=== PATIENT | female | born 1960 | race Native Hawaiian/Other Pacific Islander ===

== ENCOUNTER 2016-06-09 08:39 | Outpatient (RCR) | payer MEDICAID ==
[2016-06-09 08:52] LABS: MEAN CORPUSCULAR HEMOGLOBIN 30.7 PG (26.0-34.0); MEAN CORPUSCULAR HGB CONC 32.3 g/dL (31.0-37.0); MEAN CORPUSCULAR VOLUME 95 FL (80-100); MEAN PLATELET VOLUME 10.1 FL (6.0-9.5); PLATELET COUNT 206 10^3uL (150-450); WHITE BLOOD COUNT 14.86 10^3uL (4.0-11.0)
[2016-06-09 09:10] LABS: BAND NEUTROPHILS % 2 % (0-6); EOSINOPHILS % 2 % (0-4); LYMPHOCYTES # 2.2 #; MONOCYTES # 1.4 #; MONOCYTES % 10 % (3-11); RBC MORPH NORMAL (NORMAL); SEGMENTED NEUTROPHILS % 71 % (51-67); TOTAL CELLS COUNTED 100
[2016-06-09 09:25] LABS: ANION GAP 17.9 MEQ/L (3-15); CALCULATED IONIZED CALCIUM 3.5 mg/dL (3.8-4.6)
== END 2016-09-07 | disposition still patient (30) ==
LOC: LAB 08:39
PROVIDERS: ATTEND Internal Medicine Rheumatology
DX: Z51.81 Encounter for therapeutic drug level monitoring (principal); Z79.899 Other long term (current) drug therapy; M33.20 Polymyositis, organ involvement unspecified
CPT/HCPCS: 36415; 80053; 85025

== ENCOUNTER → 2016-08-18 | Outpatient (CLI) | payer MEDICAID ==
[~2016-08-18] MED LIST: ALBU2.5V4 INH; ALEN70TA2 PO; AMLO10TA4 PO; ASPI-860 PO; ASPI325T4 PO; ATN50T PO; CALC-690 PO; CEPH-507 PO; EYE; FLC1T PO; FURO20TA4 PO; GBPN100C PO; HYDR-3702 PO; INSASP1U SQ; INSU100V32 SQ; LIRA0.6P2 SC; LSNP20T PO; LTN005OP2 OU; METH25VI32 IM; METO-311 PO; NF-FLON16G NS; PANT40TA3 PO; PRAV40TA2 PO; PRED10TA PO; PRED10TA22 PO; RANI150T15 PO; TRAM-25 PO
[2016-08-18 14:05] LABS: ANION GAP 15.8 MEQ/L (3-15)
== END ==
LOC: LAB 13:35
PROVIDERS: ATTEND Orthopaedic Surgery
DX: I10 Essential (primary) hypertension (principal)
CPT/HCPCS: 36415; 80048; 93005

== ENCOUNTER 2016-08-22 09:58 | Emergency (ER) | payer MEDICAID ==
[~2016-08-22] VITALS: Ht 144.8 cm; Wt 63.6 kg
[~2016-08-22 09:58] MED LIST changes: -LIRA0.6P2 SC
--- OUTSIDE RECORDS SUMMARY | 2016-08-22 10:05 | XMS REPORT | Continuity of Care Document ---
Author Author [facility] Organization [facility] Address Unknown Phone Unavailable Care Team Providers Care Medical Doctor Nuclear Medicine Name Role Phone PCP Unavailable Source Comments Some departments are not documenting in the electronic medical record. If you do not see the information that you expected, contact Release of Information in the Health Information Management department at [phone] for further assistance in locating additional records.[facility] Active Allergies and Adverse Reactions Allergen Noted Date Severity Reactions Comments Penicillins 12/17/2014 Medium RASH Current Medications Prescription Sig. Disp. Refills Start End Date Status Date furosemide (LASIX) 20 mg Take 20 mg by mouth Active tablet daily. BABY ASPIRIN PO Take 81 mg by mouth. Active INSULIN Inject 100 mL into Active GLARGINE,HUM.REC.ANLOG area(s) as directed at (LANTUS SC) bedtime daily. lisinopril (PRINIVIL; Take 20 mg by mouth Active ZESTRIL) 20 mg tablet daily. folic acid (FOLVITE) 1 mg Take 1 mg by mouth daily. Active tablet ranitidine(+) (ZANTAC) Take 150 mg by mouth Active 150 mg tablet daily. fluticasone (FLONASE) 50 Apply 2 Sprays to each Active mcg/actuation nasal spray nostril as directed daily. latanoprost (XALATAN) Place 1 Drop into or Active 0.005 % ophthalmic around eye(s) at bedtime solution daily. methotrexate PF 25 mg/mL Inject into area(s) as Active injection directed once. CALCIUM CARBONATE/VITAMIN Take by mouth twice Active D2 (CALCIUM + VITAMIN D daily. PO) amLODIPine (NORVASC) 10 Take 10 mg by mouth Active mg tablet daily. INSULIN ASPART (NOVOLOG Inject 100 Units into Active SC) area(s) as directed. PANTOPRAZOLE SODIUM Take 40 mg by mouth. Active (PROTONIX PO) alendronate (FOSAMAX) 70 Take 70 mg by mouth every Active mg tablet 7 days. pravastatin (PRAVACHOL) Take 40 mg by mouth Active 40 mg tablet daily. metoclopramide HCl Take 10 mg by mouth Active (REGLAN) 10 mg tablet before meals and at bedtime. omeprazole DR(+) Take 20 mg by mouth Active (PRILOSEC) 20 mg capsule daily. gabapentin (NEURONTIN) Take 1 Cap by mouth three 90 Cap 6 06/15/20 Active 300 mg capsule times daily. 15 methotrexate 2.5 mg Take 8 Tabs by mouth 32 Tab 5 07/29/20 Active tablet every 7 days. 15 predniSONE (DELTASONE) 5 2.5 Tabs daily with 90 Tab 2 05/02/20 Active mg tablet breakfast. 16 Active Problems Problem Noted Date Diabetic peripheral neuropathy (HCC) 06/15/2015 Polymyositis 12/17/2014 manager culture current use of systemic steroids 12/17/2014 Long-term use of immunosuppressant medication 12/17/2014 Most Recent Encounters Date Type Specialty Providers Description 07/21/2016 Telephone Neurology Ahmet Devi MD Appointment - 12..16 appt reminder Social History Tobacco Use Types Packs/Day Years Used Date Former Smoker Quit: 12/17/2010 Smokeless Tobacco: Never Used Alcohol Use Drinks/Week oz/Week Comments Yes Last Filed Vital Signs Vital Sign Reading Time Taken Blood Pressure 133/86 06/15/2015 3:30 PM [employer] Pulse 91 06/15/2015 3:30 PM [employer] Temperature - - Respiratory Rate - - Height 1.448 m (4' 9") 06/15/2015 3:30 PM [employer] Weight 61.689 kg (136 lb) 06/15/2015 3:30 PM [employer] Body Mass Index 29.42 06/15/2015 3:30 PM [employer] Oxygen Saturation - - Plan of Care Health Maintenance Due Date Last Done Comments Hepatitis C Screening 1958 Physical (Comprehensive) 1965 Exam Pertussis Vaccine 1969 Tetanus Vaccine 1975 Dilated Eye Exam 1976 Foot Exam 1976 Hba1c 1976 Microalbumin 1976 Pneumonia Vaccine (Dm) 1976 Cervical Cancer Screening 1979 Breast Cancer Screening 1998 Colorectal Cancer 2008 Screening Influenza Vaccine 04/06/2016 Results from Last 3 Months Not on file
[2016-08-22] MEDS ORDERED: SODIUM CHLORIDE 250 ML IV PRN (10:15)
[2016-08-22] MEDS ORDERED: SODIUM CHLORIDE FLUSH 10 ML SYR IV PRN (10:15)
[2016-08-22] MEDS ORDERED: SODIUM CHLORIDE FLUSH 3 ML SYR IV PRN (10:15)
[2016-08-22] MEDS ORDERED: GI COCKTAIL 55 ML UDC PO ONE (10:35)
[2016-08-22 10:36] LABS: MEAN CORPUSCULAR HEMOGLOBIN 29.6 PG (26.0-34.0); MEAN CORPUSCULAR VOLUME 94 FL (80-100); MEAN PLATELET VOLUME 10.9 FL (6.0-9.5); PLATELET COUNT 206 10^3uL (150-450); WHITE BLOOD COUNT 16.68 10^3uL (4.0-11.0)
[2016-08-22] MEDS ORDERED: BELLADONNA/PHENOBARBITAL ELIXIR (DONNATAL) 10 ML UDC ONE (10:41)
[2016-08-22] MEDS ORDERED: MAG HYDROX/AL HYDROX/SIMETH 400-400-40/5 ML (MAG-AL PLUS XS) 30 ML UDC ONE (10:41)
[2016-08-22] MEDS ORDERED: LIDOCAINE 2% VISCOUS 20ML UDC PO ONE (10:41)
--- NOTE | 2016-08-22 10:41 | Diagnostic Imaging Report ---
Indication: Chest pain. Discussion: Single portable upright view of the chest was obtained, no comparison. Cardiomegaly is noted. Elevated right hemidiaphragm. No evidence of maritza heart failure. No focal consolidation, pleural fluid, or pneumothorax. No acute osseous abnormality. Posttraumatic deformity of the proximal right humerus is noted, chronic. Impression: 1. Cardiomegaly without failure. Dictated by: Dictated on workstation # [id number]
[2016-08-22 10:45] LABS: MEAN CORPUSCULAR HGB CONC 31.4 g/dL (31.0-37.0)
[2016-08-22 10:48] LABS: BAND NEUTROPHILS % 5 % (0-6); EOSINOPHILS % 0 % (0-4); LYMPHOCYTES # 1.8 #; MONOCYTES % 6 % (3-11); RBC MORPH NORMAL (NORMAL); SEGMENTED NEUTROPHILS % 78 % (51-67); TOTAL CELLS COUNTED 100
[2016-08-22] MEDS ORDERED: LIRA0.6P2 SC (10:54)
[2016-08-22 11:09] LABS: ALBUMIN 4.3 g/dL (3.4-5.0); ALKALINE PHOSPHATASE 86 U/L (38-126); ANION GAP 15.3 MEQ/L (3-15); BUN/CREATININE RATIO 28 (10-20); CALCULATED IONIZED CALCIUM 3.7 mg/dL (3.8-4.6); LIPASE* 373 U/L (23-300); TOTAL PROTEIN 7.9 g/dL (6.4-8.5)
--- NOTE | 2016-08-22 12:41 | Diagnostic Imaging Report ---
PROCEDURE: CT abdomen and pelvis without contrast. TECHNIQUE: Multiple contiguous axial images were obtained through the abdomen and pelvis without the use of intravenous contrast. DATE: August 22, 2016. COMPARISON: None. INDICATION: A 56-year-old female, mid abdominal pain. FINDINGS: There are limitations for evaluation of the abdominal organ parenchyma and vasculature relating to the lack of intravenous contrast. There are predominantly linear areas of consolidation in the right lower lobe, which may potentially relate to atelectasis although are not specific. There are also predominantly linear opacities in the left lower lobe, which also may relate to atelectasis but are also not specific. There are coronary artery calcifications and additional areas of atherosclerotic disease. There is an infrarenal abdominal aortic aneurysm which measures up to approximately 4.2 x 3.9 cm in diameter. There is calcification in the liver on axial image 15 without visualized associated liver lesion on noncontrast assessment. This is most suggestive of a benign calcification. There is a low-attenuation lesion adjacent to the ligamentum teres on image 31 with internal attenuation of 10 Hounsfield units. This is most suggestive of a benign hepatic cyst. The liver is normal in size and contour. The gallbladder is unremarkable. There is no intrahepatic or extrahepatic bile duct dilation. The pancreatic parenchyma is unremarkable. There is no dilation of the main pancreatic duct. The spleen is normal in size. The adrenal glands are unremarkable. There is a low-attenuation left renal lesion on axial image 27, which measures 1.1 cm in size with internal attenuation of 5 Hounsfield units. This is consistent with a benign cyst. There is also a benign 9 mm left renal cyst on image 29. There is a low-attenuation lesion in the left kidney with a small area of peripheral calcification on axial image 34 measuring up to approximately 1.1 cm in size. Internal attenuation within the low-attenuation portions of the lesion is 10 Hounsfield units. This is compatible with a Bosniak category II renal cyst. There is a low-attenuation right renal lesion consistent with a benign cyst measuring 1.1 cm in size on axial image 46. The urinary collecting systems are not distended. There is no identified ureteral stone. The urinary bladder is unremarkable in appearance. The uterus is not seen and may be surgically absent. The intestinal tract is not distended. The appendix is well seen on axial image 61 and adjacent sequential images. There is no evidence of acute appendicitis. There is no free intraperitoneal air. There is no drainable fluid collection. There is no large amount of free pelvic fluid. There is no identified abnormally enlarged lymph node in the abdomen or pelvis, which meets CT size criteria for adenopathy. There is no identified acute bony abnormality. There are mild degenerative changes of the bilateral hips. There are mild multilevel degenerative changes of the spine. There is concavity of the superior endplates of L2 and L3 as well as T9, which likely relates to Schmorl's nodes and/or prior compression deformities. There is no visible fracture line. IMPRESSION: CT ABDOMEN AND PELVIS. 1. No identified acute abnormality within the abdomen or pelvis. 2. Infrarenal abdominal aortic aneurysm measuring up to approximately 4.2 x 3.9 cm in size. Atherosclerotic disease. 3. Bilateral benign renal cysts. 4. Predominantly linear opacities in the lung bases most likely relating to atelectasis although not entirely specific. Dictated by: Dictated on workstation # [id number]
[2016-08-22 13:10] VITALS: BP 117/52
== END 2016-08-22 13:11 | disposition home or self-care (01) ==
LOC: EDUNIT# 09:58 → ED 10:01
DX: K29.70 Gastritis, unspecified, without bleeding (principal); D72.829 Elevated white blood cell count, unspecified
CPT/HCPCS: 36415; 71010; 74176; 80053; 83690; 84484; 85025; 85610; 93005; 99285; A9270; 93010

== ENCOUNTER 2016-09-15 12:36 | Outpatient (RCR) | payer MEDICAID ==
[~2016-09-15 12:36] MED LIST changes: +LIRA0.6P2 SC
[2016-09-15 13:09] LABS: MEAN CORPUSCULAR HGB CONC 32.5 g/dL (31.0-37.0); MEAN CORPUSCULAR VOLUME 93 FL (80-100); MEAN PLATELET VOLUME 10.6 FL (6.0-9.5); PLATELET COUNT 225 10^3uL (150-450); WHITE BLOOD COUNT 13.43 10^3uL (4.0-11.0)
[2016-09-15 13:17] LABS: BAND NEUTROPHILS % 2 % (0-6); EOSINOPHILS % 0 % (0-4); MONOCYTES # 1.4 #; MONOCYTES % 11 % (3-11); RBC MORPH NORMAL (NORMAL); SEGMENTED NEUTROPHILS % 72 % (51-67); TOTAL CELLS COUNTED 100
[2016-09-15 13:20] LABS: ALBUMIN 4.1 g/dL (3.4-5.0); ANION GAP 14.1 MEQ/L (3-15); TOTAL PROTEIN 7.2 g/dL (6.4-8.5)
== END 2016-12-14 | disposition home or self-care (01) ==
LOC: LAB 12:36
PROVIDERS: ATTEND Internal Medicine Rheumatology
DX: M33.20 Polymyositis, organ involvement unspecified (principal); Z51.81 Encounter for therapeutic drug level monitoring; Z79.899 Other long term (current) drug therapy
CPT/HCPCS: 36415; 80053; 85025

== ENCOUNTER → 2016-10-04 | Outpatient (CLI) | payer MEDICAID ==
[2016-10-04 14:20] LABS: ANION GAP 15.5 MEQ/L (3-15)
== END ==
LOC: LAB 13:54
PROVIDERS: ATTEND Orthopaedic Surgery
DX: I10 Essential (primary) hypertension (principal)
CPT/HCPCS: 36415; 80048

== ENCOUNTER 2016-11-13 14:15 | Outpatient (RCR) | payer MEDICAID ==
--- NOTE | 2016-09-20 11:07 | PT/OT/ST INITIAL EVALUATION ---
[facility], [facility]. PHYSICAL/OCCUPATIONAL THERAPY [address] [place] [id number] PLAN OF CARE/ASSESSMENT FOR OUTPATIENT REHABILITATION (Complete for Initial Claims Only) 1. PATIENT'S NAME Lisa Quezada 2. ACC. No [id number] 3. REFERRING PHYSICIAN Dr. Mc Bird 4. PRIMARY DX Polymyositis and cervicalgia 5. SECONDARY DX Cervicalgia 6. ONSET DATE 05/2016 7. REFERRAL DATE September 18, 2016 8. SOC. DATE/TIME September 19, 2016 2:11 p.m. 9. CHARGES/UNITS 15 minutes of ultrasound 20 minutes of manual therapy 30 minute evaluation 10. PRIOR LEVEL OF FUNCTION; PERTINENT HISTORY (Prior therapy results, reason for referral.) S: Prior to therapy, the patient consented to today's evaluation and treatment. The patient is a 56-year-old female referred to us by Dr. Mc Brid to address cervicalgia. Overall health rating: The patient rates overall and general health as fair. Mechanism of injury: The patient does not recall any specific event that brought on the neck pain. The patient states that her pain is on the right side. It does not occur on the left side for her and it is specifically located in the right cervical spine and upper trapezius region. She states this has recently been getting worse in the past 3 months. The patient states she has had a diagnosis of polymyositis in 1993. Prior function: Prior to the recent neck pain, the patient was able to sew and hira. Current function: Currently she is not able to sew and hira due to the pain with the shoulder and neck movements. Pain rating: The patient did not give a specific rating on her pain. Obstacles to delivery of care: The patient's age and chronic progressive disease of polymyositis. Aggravating factors: As previously mentioned the flexing and moving the neck. She states that being still for prolonged period of time causes stiffness and pain. Relieving factors for patient is a massage, Icy Hot patches and a heating pad. Diagnostic tests: No diagnostic testing has been performed on the patient's neck or shoulder. Past medical history: The patient has past medical history of arthritis, osteoporosis, diabetes, stomach problems, high blood pressure, lung problems and an extensive surgical history. The patient has also previously broken her humerus on the right side Therapy History: The patient visited us for broken humerus. Medication list: The patient only takes Tylenol Leisure activities: She likes to sew and hira, but she is unable to at this time. The patient's goal for physical therapy is to have her pain relieved and return to sewing and crocheting. 11. INITIAL ASSESSMENT/SAFETY PRECAUTIONS/MEDICAL COMPLICATIONS (Level of function at start of care. Be specific, use objective measures, list problems.) O: APPEARANCE AND OBSERVATION: The patient appears to have depressed shoulders, forward rounded kyphotic posture. Besides this, nothing is remarkable. PALPATION: The patient has tenderness to palpation at the origin and insertion and the muscle belly of the upper trapezius muscle. SPECIAL TESTS: Deferred due to exacerbation of symptoms. RANGE OF MOTION/FLEXIBILITY: The patient has 50 degrees flexion, 50 degrees extension, 55 degrees rotation to the right, which was painful, 70 degrees rotation to the left and not painful. Her right and left side bend were normal range of motion, but they were painful for her. STRENGTH: The patient has gross weakness both upper extremity and lower extremity due to chronic progressive disease of polymyositis, but generally gross strength is around 3+/5. TODAY'S TREATMENT: Today's treatment consisted of ultrasound, manual therapy and an evaluation. 12. INITIAL POC: (Specify procedures, modalities, short and telecom billing analyst goals) A: PROGNOSIS: Due to a personal health rating of fair, the patient has a fair prognosis for therapy and due to the chronic progressive disease of polymyositis the patient has a fair prognosis. OUTCOME ASSESSMENT: The patient completed the [place] cervical spine questionnaire and she scored a 38% disability on this. FUNCTIONAL LIMITATIONS: The patient has difficulty with arms above head, looking to the right and looking down. She also has difficulty with lifting objects with her right arm. GOALS: 1. The patient will be independent and compliant with home exercise program in 1 week for improved prognosis and increased effectiveness of physical therapy interventions. 2. In 3 weeks, the patient will be able to rotate her head to the right 65 degrees without pain in order to safely drive and begin to sew and hira without pain. 3. The patient will improve [place] and [place] cervical spine questionnaire in 6 weeks from a 38% disability to a 20% disability for improved functional ability during functional tasks throughout the day and improved functional capacity with activities involving neck and shoulder. P: Plan to treat the patient 2 times per week for 6 weeks in order to address right shoulder pain. Treatments include, but are not limited to, ultrasound and iontophoresis for pain and tissue extensibility. Manual therapy such as joint mobilizations for improved arthrokinematics and joint mobility, therapeutic exercise for strengthening, active range of motion for improved range of motion at the shoulder and neck, and neural reeducation for improved posture. 13. PHYSICIAN SIGNATURE ? ON FILE OR ENTER HERE: 14. DATE: I certify the need for these services furnished under this plan of care and if for partial hospitalization. 15. CERTIFICATION FROM THROUGH
== END 2016-12-18 | disposition home or self-care (01) ==
LOC: PT 14:15
PROVIDERS: ATTEND Internal Medicine Rheumatology
DX: M33.20 Polymyositis, organ involvement unspecified (principal); M54.2 Cervicalgia

== ENCOUNTER 2016-11-27 08:00 | Outpatient (RCR) | payer MEDICAID ==
--- NOTE | 2016-10-27 15:19 | PT/OT/ST INITIAL EVALUATION ---
Department of Health and Human Services Form Approved [facility] Care Financing Administration OMB No. [id number] PLAN OF CARE/ASSESSMENT FOR OUTPATIENT REHABILITATION (Complete for Initial Claims Only) 1. PATIENT'S NAME Lisa Quezada 2. ACC # [id number] 3. HICN NA 4. PROVIDER NO. [id number] 5. TYPE: OT 6. PRIOR HOSPITALIZATION NA 7. PRIMARY DX Trigger finger, right middle finger. Trigger finger, right ring finger. 8. TREATMENT DX Stiffness of right hand, weakness, localized edema. 9. ONSET DATE 10/10/2016 10. REFERRAL DATE 10/25/2016 11. SOC. DATE 10/27/2016 12. TIME OF EVAL 12:45 p.m. to 1:45 p.m. 12. REFERRING PHYSICIAN Dr. Ishan Sprague 13. CHARGES/UNITS 60 total 30 evaluation [address]134- Low Complexity. 10 ultrasound. 20 therapeutic exercise 14. G CODES NA 15. PRIOR LEVEL OF FUNCTION; PERTINENT HISTORY (Prior therapy results, reason for referral.) S: Reason for referral: The patient is a 56-year-old female referred to therapy by Dr. Ishan Sprague to address occupational concerns following R long and ring trigger finger release. Description/mechanism of injury: The patient reports noticing middle and ring finger locking up beginning around the holidays of last year. The patient tried conservative management, but reports it did not help. The patient completed trigger finger release surgery on 10/10/16 for 3rd and 4th digit of right hand. The patient's stitches were removed on 10/25/2016. The patient reports this is the second trigger finger release for her 3rd digit, which was completed approximately 6 to 7 years ago. Pt reports hand continues to be painful since surgery date. Home set up/Prior level of function: The patient lives with her . Prior to onset the patient was independent with all ADL and IADL tasks. Current functional performance and deficits: The patient is right handed. The patient reports difficulty with writing, gripping, grasping, and manipulating everyday items/containers. The patient reports difficulty with driving, including turning the montes and manipulating the stick shift with her right hand. Pt has relied on her left hand to complete these tasks. The patient additionally reports difficulty turning doors with her right hand, relying on her left hand for most activities secondary to increased pain levels. The patient reports difficulty with sleep secondary to achy and painful symptoms. Pain level and location: Along the volar side of MCP's of 3rd and 4th digit and volar side of palm. The patient reports her pain as 4/10. Aggravating factors: Grasping and opening items, bumping into things and driving. Relieving factors: Pain pills, heat and massaging area help to some extent. Personal health rating: Fair. Diagnostic testing: None PMH (PT, OT, hospitalizations): Includes bone fracture, osteoporosis, diabetes, stomach problems, high blood pressure, and lung problems. Pt has completed previous physical therapy services for neck and shoulder concerns. Current medications: Aspirin, Prednisone, Lantus, NovoLog, Norvasc, Lisinopril, Pravastatin, Prilosec, Fosamax, Gabapentin, Folic Acid, Victoza, Cranberry and Calcium. No medications to complicate therapy. Patient's Goal: To be able to use hand again for all activities with no pain. 16. INITIAL ASSESSMENT/SAFETY PRECAUTIONS/MEDICAL COMPLICATIONS (Level of function at start of care. Be specific, use objective measures, list problems.) O: APPEARANCE AND OBSERVATION: The patient appeared to her initial occupational therapy evaluation this date. Upon observation the patient demonstrated two 2 cm scars along volar side of 3rd and 4th digit. The therapist was unable to assess scarring color secondary to ink from surgery covering areas. Scars were moderately raised with noted thickened area under the skin. The patient reports moderate tenderness to palpation along pads of MCPs. Patient able to complete opposition testing of all digits with no difficulty. The patient demonstrated difficulty completing full tendon glides movements. Demonstrated difficulty forming hook fist, straight fist and composite fist. Through testing, pt demonstrated noted intrinsic tightness. CIRCUMFERENCE/EDEMA: Around MCPs: right 18.5 cm, left 17.8 cm. MCP joint of 3rd digit: right 6.9 cm, left 6 cm. MCP joint of 4th digit: right 6.6 cm, left 5.6 cm. Figure-of-8 technique, right 37.0 cm, left 26.3 cm. OUTCOME ASSESSMENTS: QuickDASH: The QuickDASH was completed this date with a score of 68.18. A score of 0 indicates no difficulties or limitations with daily activities or leisure tasks. The patient reports her maximum pain in the past 24 hours as 4/10. Sales Development Specialist strength: right 12 pounds with report of 3/10 pain. Left 40 pounds. Pinch strength 2 point pinch: right 4 pounds with report or 4/10 pain, left 8 pounds. 3-point pinch: right 4 pounds with report of 4/10 pain, left 10 pounds. Lateral pinch: right 10 pounds, left 12 pounds. 9-hole peg test: right 38 seconds with report of 3/10 pain during assessment when picking up pegs. Left 21.84 seconds. Palpation: The patient reports moderate tenderness to palpation along the area. The patient demonstrates noted thickened area under the skin of both scars. Sensation: The patient reports occasional sharp, shooting pains and tingling/numbness in hand. CONTRAINDICATIONS, PRECAUTIONS AND OBSTACLES TO DELIVERY OF CARE: None INFORMED CONSENT: The occupational therapy discussed the OT diagnosis, prognosis, treatment plan, risks and expected outcome with the patient. The patient and family agreed to the OT plan of care this date. TODAY'S TREATMENT: Included education about occupational therapy and the occupational therapy process. Additionally, the therapist completed ultrasound 3.0 MHz, 1.5 w/cm2, continuous along volar side of right hand to decrease pain and promote healing. Completed tendon gliding exercise x 5 to reduce stiffness and promote movement. Completed passive finger extension of 3rd and 4th digit to provide stretch. Provided patient with a home exercise program and educational handout on contrast baths to reduce stiffness and swelling. 17. INITIAL POC: (Specify procedures, modalities, short and terminal block assembler goals) A: OT DIAGNOSIS: The patient presents to occupational therapy services with decreased active movement, decreased strength, localized edema, and increased stiffness in right hand secondary to 3rd and 4th digit trigger finger release. The patient would benefit from skilled occupational therapy services for design and administration of therapeutic exercise and activities to improve independence with all daily activities for return to prior level of function. PROBLEMS/IMPAIRMENTS/FUNCTIONAL LOSS: Include increased pain levels and decreased active movement and strength of right hand, which impacts the patient's ability to complete all tasks, requiring pt to rely on left hand. INTENDED OUTCOMES: Include reduce pain and edema levels and increase active movement and strength in right hand for return to all activities with no difficulty. REHAB POTENTIAL/PROGNOSIS: The patient is expected to have a good prognosis with consistent attendance of therapy sessions and carryover with home exercise program. SHORT TERM GOALS X3 WEEKS: 1. The patient will verbalize and demonstrate compliance with home exercise program. 2. The patient will demonstrate ability to manipulate 8 out 10 everyday items/containers with 2/10 pain or less to improve independence with tasks. FPC GOALS: 1. The patient will report a decrease in QuickDASH score of 15 to 20 points to indicate a meaningful change and increase independence with daily activities and leisure tasks. 2. The patient will demonstrate an increase in right advertising sales agent strength by 10 pounds to increase ease of carrying and handling everyday objects. 3. The patient will demonstrate ability to cut food independently using right hand. P: Plan to treat the patient 2 times a week for 5 weeks in order to address occupational concerns following trigger finger release. The treatment is to include modalities, manual therapy, soft tissue mobilization, therapeutic exercise, active range of motion, passive range of motion, therapeutic activities, ADL/self-care, patient education/home exercise program and other treatments as indicated. 18. FREQUENCY 2 times a week 19. DURATION 5 weeks 20. FUNCTIONAL LEVEL (End of claim period) 21. PHYSICIAN SIGNATURE ? ON FILE OR ENTER HERE: 22. DATE: I certify the need for these services furnished under this plan of care and if for partial hospitalization. 23. CERTIFICATION FROM THROUGH FORM [facility]-[id number]
== END 2016-12-03 12:00 | disposition home or self-care (01) ==
LOC: OT 08:00
PROVIDERS: ATTEND Orthopaedic Surgery
DX: M65.331 Trigger finger, right middle finger (principal); M65.341 Trigger finger, right ring finger; M79.641 Pain in right hand; Z98.890 Other specified postprocedural states

== ENCOUNTER 2016-11-27 09:00 | Outpatient (RCR) | payer MEDICAID ==
--- NOTE | 2016-11-09 09:04 | PT/OT/ST INITIAL EVALUATION ---
Department of Health and Human Services Form Approved Health Care Financing Administration OMB No. [id number] PLAN OF CARE/ASSESSMENT FOR OUTPATIENT REHABILITATION (Complete for Initial Claims Only) 1. PATIENT'S NAME Lisa Quezada 2. ACC # [id number] 3. HICN NA 4. PROVIDER NO. NA 5. TYPE: PT 6. PRIOR HOSPITALIZATION NA 7. PRIMARY DX Right shoulder posttraumatic arthritis 8. SECONDARY DX NA 9. ONSET DATE Worsening since 2014 10. REFERRAL DATE NA 11. SOC. DATE 11/07/2016 12. TIME OF EVAL 2:55 p.m. 12[address] RE[address]YSICIAN Dr. Ishan Sprague 13. CHARGES/UNITS NA 14. G CODES NA 15. PRIOR LEVEL OF FUNCTION; PERTINENT HISTORY (Prior therapy results, reason for referral.) S: Prior to therapy, the patient did consent to today's evaluation and treatment. The patient is a 56-year-old female referred to physical therapy by Dr. Ishan Sprague to address posttraumatic arthritis of the right shoulder. Personal health rating: The patient does rate her overall and general health as fair. Description/mechanism of injury: The patient states in 2014 she fell and fractured her humerus in the right shoulder area. Since this time the patient has developed arthritis in this area with decreased function over time. The patient states she feels a deep popping with right shoulder movement with pain at times, especially when trying to lift her arm overhead. The patient does state that this is worsening over time and she is having gradually decreasing function due to this. The patient did have a cortisone shot when she last saw the doctor; however, she states she has had no significant change in pain. The patient is unable to reach overhead making everyday tasks difficult for her. The patient is right handed. Prior level of function: Includes the patient being able to use the right upper extremity for all functional tasks and activities of daily living. Current level of function: Currently the patient is unable to lay on her right side secondary to pain. 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 Therapy History: The patient has had no previous physical therapy for this condition. Obstacles to delivery of care: Includes polymyositis. Pain level: Maximal pain level is 4/10. The patient describes the pain as an aching and sometimes tingling sensation in her right shoulder. Aggravating factors: Include first thing in the morning when she first wakes up. Relieving factors: Include ice and heat. Diagnostic testing: Diagnostic tests include x-rays, which do show osteoarthritis present. Past medical history: Includes insulin dependent diabetes mellitus, osteoporosis, hypertension, and restrictive lung disease, history of pneumothorax, chronic kidney infections, and polymyositis. Current medications: Includes insulin. The patient is unsure of the rest of her medications, but will bring a list at a future visit. Patient's Goal: The patient's goal for physical therapy is to be able to reach overhead and perform housecleaning tasks and be able to return to fishing in her leisure time. 16. INITIAL ASSESSMENT/SAFETY PRECAUTIONS/MEDICAL COMPLICATIONS (Level of function at start of care. Be specific, use objective measures, list problems.) O: APPEARANCE AND OBSERVATION: The patient presents as a middle aged female who presents at physical therapy with rounded shoulders and a forward head. When attempting to move the right upper extremity into an overhead position, the patient does have significant hiking of the shoulder with significant substitution. PALPATION: With palpation the patient is specifically point tender at the anterior right shoulder. The patient does have increased tone and tightness throughout the upper trap and levator, as well as the middle deltoid. SPECIAL TESTS: Include a positive Speed's test. The patient additionally had limited mobility of approximately 25% limitation in inferior glide of the glenohumeral joint with increased restriction in the second phase of motion. The patient additionally had limitation in posterior glide of the capsule as well. RANGE OF MOTION/FLEXIBILITY: Shoulder flexion active range of motion on the right 89 degrees, on the left 135 degrees. Shoulder extension active range of motion 32 degrees on the right, 32 degrees on the left. Shoulder abduction 90 degrees on the right with pain, 134 degrees on the left. Internal and external rotation was measured via Apley method and these measurements on the right were L4 with pain and L2 respectively and on the right was C6 and C7 respectively. STRENGTH: Throughout the left upper extremity is grossly 3+/5 throughout with the exception of elbow flexion, which is 4-/5. Throughout the right upper extremity biceps and triceps 4-/5, external and internal rotation 3+/5. All other motions throughout the right shoulder grossly 3/5. TODAY'S TREATMENT: Following the initial evaluation manual therapy techniques were performed to address joint capsule restriction. Therapeutic exercise was then performed and issued as a home exercise program. 17. INITIAL POC: (Specify procedures, modalities, short and assisted goals) A: The patient presents to physical therapy with diagnosis of posttraumatic arthritis of the right shoulder with resultant decreased active range of motion, decreased strength, decreased posture and increased pain. PROGNOSIS: This patient does have a good prognosis with regular therapy attendance and compliance with a home exercise program. This patient is expected to benefit from physical therapy services in order to have increased active range of motion, increased strength to return to full household tasks. OUTCOME ASSESSMENT: Includes the QuickDASH which scored 52% disability. INFORMED CONSENT: The diagnosis, prognosis, treatment plan, risks and expected outcomes were discussed with the patient and the patient did agree to today's established plan of care. SHORT TERM GOALS: 1. The patient to be independent and compliant with home exercise program in 1 week. 2. The patient with active range of motion right shoulder at least 120 degrees for both flexion and abduction in 3 weeks to allow reaching into high cabinets. 3. The patient with right shoulder strength at least 4/5 throughout in 6 weeks to allow fishing without difficulty. 4. The patient with a QuickDASH score no more than 25% disability in 8 weeks to allow return to full household tasks. P: Plan to treat the patient 2 times per week for 8 weeks in order to address posttraumatic arthritis of the right shoulder. Treatment to include modalities to decrease pain, inflammation and spasming. Manual therapy techniques as indicated. Therapeutic exercise targeting active range of motion, strengthening and postural stabilization activities and patient education and home exercise program to be advanced as warranted. 18. FREQUENCY 2 times per week 19. DURATION 8 weeks 20. FUNCTIONAL LEVEL (End of claim period) 21. PHYSICIAN SIGNATURE ? ON FILE OR ENTER HERE: 22. DATE: I certify the need for these services furnished under this plan of care and if for partial hospitalization. 23. CERTIFICATION FROM THROUGH [facility]700
== END 2016-12-03 12:00 | disposition home or self-care (01) ==
LOC: PT 09:00
PROVIDERS: ATTEND Orthopaedic Surgery
DX: M19.111 Post-traumatic osteoarthritis, right shoulder (principal)